=== PATIENT | male | born 1960 | race Caucasian/White ===

== ENCOUNTER 2019-07-07 14:52 | Emergency (ER) | payer MEDICARE ==
[~2019-07-07] VITALS: Ht 180.3 cm; Wt 83.9 kg
--- NOTE | 2019-07-07 16:12 | NUR ---
Patient given written and verbal discharge instructions. Patient verbalizes understanding of instructions. Patient is ambulatory with steady gait. Refuses offer of correction placement. Patient given list of available shelters in surrounding area.
== END 2019-07-07 16:13 | disposition home or self-care (01) ==
LOC: ER 14:57
DX: J45.909 Unspecified asthma, uncomplicated (principal); M10.9 Gout, unspecified; Z60.2 Problems related to living alone; Z59.0 Homelessness; Z76.0 Encounter for issue of repeat prescription

== ENCOUNTER 2019-08-13 14:04 | Emergency (ER) | payer MEDICARE ==
[~2019-08-13] VITALS: Ht 180.3 cm; Wt 83.9 kg
[2019-08-13 14:05] VITALS: BP 176/11
--- NOTE | 2019-08-13 14:37 | NUR ---
dr Ramirez at bedside
--- NOTE | 2019-08-13 14:49 | NUR ---
provided w meal tray. tolerated PO well.
--- NOTE | 2019-08-13 15:04 | NUR ---
Patient given written and verbal discharge instructions. Patient verbalizes understanding of instructions. Patient is ambulatory with steady gait. Refuses offer of [facility] placement. Patient given list of available shelters in surrounding area.
--- NOTE | 2019-08-13 15:18 | NUR ---
all belongings returned to patient. name band removed. in proper clothing upon discharge
== END 2019-08-13 15:21 | disposition home or self-care (01) ==
LOC: ER 14:07
DX: B35.6 Tinea cruris (principal); K61.1 Rectal abscess; Z59.0 Homelessness